=== PATIENT | male | born 1995 | race Two or more races ===

== ENCOUNTER 2016-08-22 19:45 | Emergency (ER) | payer MEDICAID, OTHER ==
[~2016-08-22] VITALS: Ht 182.9 cm; Wt 104.3 kg
--- NOTE | 2016-08-22 20:00 | NUR ---
PATIENT WALKED INTO ER C/O LEFT ANKLE INJURY. PATIENT WAS PLAYING BASKETBALL ABOUT 1HR PRIOR TO ARRIVAL AND SPARINED LEFT ANKLE. PATIENT STATES "I JUMPED AND LANDED ON SOMEONE FOOT AND SPARINED MY LEFT ANKLE." NERVE AND CHECKS WITH NORMAL LIMITS.
--- NOTE | 2016-08-22 20:52 | NUR ---
Crutches dispensed. Pt instructed on proper use of crutches. Patient able to demonstrate correct use of crutches.
--- NOTE | 2016-08-22 21:00 | NUR ---
Patient discharged to home in stable conditon WITH FATHER. Written and verbal after care instructions given. Patient .FATHERverbalizes understanding of instructions. WALKED OUT OF ER WITH USE OF WALKER WITH NO DISTRESS NOTED
[2016-08-22 21:01] VITALS: BP 128/85
== END 2016-08-22 21:02 | disposition home or self-care (01) ==
LOC: ER 19:47
DX: S93.05XA Dislocation of left ankle joint, initial encounter (principal); F10.20 Alcohol dependence, uncomplicated; X58.XXXA Exposure to other specified factors, initial encounter; Y93.67 Activity, basketball; Y99.8 Other external cause status; Y92.89 Other specified places as the place of occurrence of the external cause
CPT/HCPCS: 73610; A4663